=== PATIENT | male | born 1965 | race Caucasian/White ===

== ENCOUNTER → 2018-10-10 | Outpatient (CLI) | payer OTHER ==
[~2018-10-10] MED LIST: GADOBUTROL 10 ML VIAL IVP ONE
== END ==
LOC: FIMAGING 09:11
PROVIDERS: ATTEND Specialist
DX: N20.0 Calculus of kidney (principal); N28.89 Other specified disorders of kidney and ureter
CPT/HCPCS: A9585

== ENCOUNTER 2019-02-01 20:09 | Emergency (ER) | payer OTHER ==
--- NOTE | 2019-02-01 21:21 | EDPHY ---
H & P Time Seen by Provider: 02/01/19 21:00 HPI/ROS: CHIEF COMPLAINT: "Kidney stone" HISTORY OF PRESENT ILLNESS: Patient is a 53-year-old male with a history of kidney stone. He had lithotripsy in August for [address] Hernandez. Patient states for the past 5-6 days he has had some mild lower abdominal discomfort. He schedule an appointment with Dr. Hernandez on Sunday. Today he developed significant left flank pain. This radiated in his groin between his legs. He states his pain was severe but upon arriving to his room his pain completely resolved. He had nausea but no complaints currently. Denies fevers or chills. No dysuria frequency. He has not noticed any hematuria. REVIEW OF SYSTEMS: 10 systems were reveiwed and are negative with the exception of the elements mentioned in the history of present illness. Past Medical/Surgical History: Includes kidney stone Smoking Status: Never smoked Physical Exam: Vitals noted GENERAL: Well-appearing, in no acute distress, alert. HEENT: Eyes normal to inspection, normal pharynx, no signs of dehydration. NECK: Normal, supple. RESPIRATORY: Clear to auscultation bilaterally, no rales, rhonchi or wheezing. CVS: Regular rate and rhythm, no rubs, murmurs, or gallops. ABDOMEN: Soft, nontender, nondistended, no organomegaly. Benign BACK: Normal to inspection, no CVA tenderness. SKIN: Normal color, no rash, warm, dry. No pallor. EXTREMITIES: No pedal edema, no calf tenderness, no Homans sign or cords, no joint swelling. NEURO/PSYCH: Alert and oriented, normal mood and affect Constitutional: Initial Vital Signs Temperature (C) 36.0 C 02/01/19 20:30 Heart Rate 100 02/01/19 20:30 Respiratory Rate 22 H 02/01/19 20:30 Blood Pressure 164/92 H 02/01/19 20:30 O2 Sat (%) 96 02/01/19 20:30 O2 Delivery Mode Room Air Allergies/Adverse Reactions: No Known Allergies Allergy (Unverified 02/01/19 20:29) Home Medications: Medication Instructions Recorded HCTZ (*) 02/01/19 Losartan Potassium 02/01/19 Medical Decision Making ED Course/Re-evaluation: In the emergency department I discussed possible etiologies with the patient. I answered all his questions. The patient has no pain at this time. Symptoms have completely resolved. I discussed options with the patient. He does not want CT imaging or laboratory studies. He did agree to UA. UA: Red cells and white cells The patient was given Keflex orally. He is given a take-home pack. He is given a prescription for 3 days. I discussed the results with the patient. He was given warnings prior to leaving. Patient was given a prepack of Percocet in case his pain returns. Differential Diagnosis: My differential includes but is not limited to kidney stone, urinary tract infection, pyelonephritis, bacteremia, sepsis, dissection - Data Points Laboratory Results: 02/01/19 20:45 Urine RBC 50-182 /hpf H /hpf (0-3) Urine WBC 5-10 /hpf H /hpf (0-3) Ur Epithelial Cells TRACE /lpf /lpf (NONE-1+) Calcium Oxalate Crystal PRESENT /hpf /hpf (NONE-1+) Hyaline Casts 1-5 /lpf /lpf (0-1) Urine Mucus 4+ /lpf H /lpf (NONE-1+) Departure - Departure Disposition: Home, Routine, Self-Care Clinical Impression: Kidney stone, UTI (urinary tract infection) Condition: Good Instructions: Kidney Stones (ED), Urinary Tract Infection in Men (ED) Referrals: Wallace Hernandez MD [Medical Doctor] - 2-3 days without fail
[2019-02-01 21:53] VITALS: BP 142/88
[2019-02-01] MEDS ORDERED: CEPHALEXIN 500MG PREPACK#4 BTL TAKEHOME ONE (22:46)
[2019-02-01] MEDS ORDERED: OXYCODONE/APAP 5/325MG PREPACK#4 BTL TAKEHOME ONE (22:47)
== END 2019-02-01 23:06 | disposition home or self-care (01) ==
DX: N20.0 Calculus of kidney (principal); N39.0 Urinary tract infection, site not specified